=== PATIENT | female | born 2000 | race Caucasian/White ===

== ENCOUNTER 2021-04-09 15:26 | Emergency (ER) | payer OTHER ==
[~2021-04-09] VITALS: Ht 152.4 cm; Wt 55.3 kg
[2021-04-09 16:03] LABS: BASOPHIL 0.4 % (0-2); EOSINOPHIL 0 % (0-5); HCT 41.6 % (37.0-47.0); HGB 13.6 g/dl (12.5-16.0); LYMPHOCYTE 8.7 % (15-48); MCH 26.5 pg (25.0-31.0); MCHC 32.7 g/dL (32.0-36.0); MCV 80.9 fL (78.0-100.0); MONOCYTE 2.2 % (0-12); MPV 11.5 fL (6.0-9.5); NEUTROPHIL 88.4 % (41-80); NRBC 0; PLT 405 K/uL (150-400); RBC 5.14 M/uL (4.20-5.40); RDW 19.9 % (11.5-14.0); WBC 9.1 K/uL (4.0-10.5)
[2021-04-09 16:19] LABS: LACTIC ACID 2.1 mmol/L (0.4-1.9)
[2021-04-09 16:24] LABS: ALBUMIN 5.1 g/dL (3.4-5.0); BILIRUBIN - TOTAL 0.5 mg/dL (0.2-1.0); BUN/CREAT RATIO (CALC) 15.5 RATIO; CREATININE 0.58 mg/dL (0.51-0.95); FT4 (FREE T4) 1.3 ng/dL (0.76-1.46); GLOBULIN (CALCULATION) 3.7 g/dL; POTASSIUM 3.9 mmol/L (3.5-5.1); TOTAL PROTEIN 8.8 g/dL (6.4-8.2)
[2021-04-09 17:36] LABS: BILIRUBIN NEGATIVE (NEGATIVE); BLOOD TRACE-INTACT Ery/uL (NEGATIVE); CLARITY CLEAR (CLEAR); COLOR YELLOW (YELLOW); GLUCOSE (U) NORMAL (NORMAL); LEUKOCYTES NEGATIVE Leu/uL (NEGATIVE); NITRITE NEGATIVE (NEGATIVE); PROTEIN TRACE (LOW) mg/dL (NEGATIVE); SPECIFIC GRAVITY >=1.030 (1.001-1.030); UROBILINOGEN 0.2 mg/dL (0.2-1.0)
[2021-04-09 17:44] LABS: BACTERIA 1+; URINARY WBC RARE
== END 2021-04-09 18:46 | disposition home or self-care (01) ==
LOC: FER 15:26
PROVIDERS: Emergency Medicine
DX: B34.9 Viral infection, unspecified (principal); E86.0 Dehydration
CPT/HCPCS: 36415; 80053; 81001; 83605; 84439; 84443; 85025; J2060; J2405; J7030; Q9967